=== PATIENT | male | born 1940 | race Caucasian/White ===

== ENCOUNTER 2017-02-14 07:58 | Inpatient (IN) | payer MEDICARE ==
[~2017-02-14] VITALS: Ht 177.8 cm; Wt 75.0 kg
[2017-02-14 08:48] LABS: APPEARANCE CLOUDY (CLEAR); BILIRUBIN NEGATIVE (NEGATIVE); COLOR RED (YELLOW); GLUCOSE NEGATIVE (NEGATIVE); KETONE NEGATIVE (NEGATIVE); LEUKOCYTE ESTERASE TRACE (NEGATIVE); NITRITE NEGATIVE (NEGATIVE); PROTEIN 3+ mg/dL (NEGATIVE); SPECIFIC GRAVITY 1.015 (1.005-1.020); UROBILINOGEN NORMAL (NORMAL)
[2017-02-14 08:49] LABS: BACTERIA NONE SEEN /hpf (NONE SEEN); EPITHELIAL CELLS NSEEN /hpf (0-5); RED CELLS - URINE >50 /hpf (0-5); WHITE CELLS - URINE 0-5 /hpf (0-5)
[2017-02-14 08:52] LABS: HEMOGLOBIN 14.2 g/dL (13.5-17.5); MCH 30.9 pg (26.0-34.0); MCV 93.7 fL (80.0-100.0); MEAN PLATELET VOLUME 10.8 fL (7.4-10.4); PLATELET COUNT 162 10x3/uL (130-400); RBC 4.59 10x6/uL (4.20-6.10); RDW 15.2 % (11.5-14.5); WBC 7.5 10x3/uL (4.8-10.8)
[2017-02-14 08:58] LABS: APTT 31.5 SECONDS (22.8-39.4); INR 1.09 (0.85-1.17)
[2017-02-14 09:06] LABS: ALBUMIN 3.8 g/dL (3.4-5.0); ANION GAP 10.3 mmol/L (8-16); BILIRUBIN - TOTAL 0.5 mg/dL (0.2-1.3); CALCIUM 8.7 mg/dL (8.5-10.1); CARBON DIOXIDE 28.4 mmol/L (21.0-32.0); CREATININE - SERUM 1.3 mg/dL (0.6-1.3); POTASSIUM - SERUM 3.7 mmol/L (3.5-5.1)
[2017-02-14 09:48] LABS: EOSINOPHILS 1 % (0-7); LYMPHOCYTES 27 % (15-50); MONOCYTES 15 % (2-11); NEUTROPHILS 52 % (40-80); PLATELET ESTIMATE DECREASED
--- NOTE | 2017-02-14 13:35 | NUR ---
Verbalized name and , patient admitted from ER with hematuria, mills catheter in place with bloody colored urine. Reports no pain. Call light within reach.
[2017-02-14 15:10] LABS: HEMOGLOBIN 14.2 g/dL (13.5-17.5); MCH 30.5 pg (26.0-34.0); MCV 92.3 fL (80.0-100.0); MEAN PLATELET VOLUME 11.1 fL (7.4-10.4); PLATELET COUNT 174 10x3/uL (130-400); RBC 4.66 10x6/uL (4.20-6.10); RDW 15.1 % (11.5-14.5); WBC 6.8 10x3/uL (4.8-10.8)
[2017-02-14 15:27] VITALS: Ht 177.8 cm; Wt 75.0 kg
--- NOTE | 2017-02-14 15:30 | NUR ---
Patient with bleeding around his penis, minimal urine flowing in mills catheter. cleansed up, adjusted catheter and noted some bloody urine draining into tubing and bag. Orders reviewed for continuous irrigation, discussed this and inquired of unit policy and procedure for this with nurse Og.
[2017-02-14] MEDS ORDERED: MACROBID100 MG PO (15:39)
[2017-02-14 15:43] VITALS: BP 140/82
--- NOTE | 2017-02-14 16:06 | NUR ---
Per charge nurse Lenka another nurse Julias RN will initiate and instruct this nurse on the continuous catheter irrigation.
[2017-02-14 17:12] LABS: EOSINOPHILS 3 % (0-7); LYMPHOCYTES 41 % (15-50); MONOCYTES 4 % (2-11); NEUTROPHILS 53 % (40-80); PLATELET ESTIMATE NORMAL
--- NOTE | 2017-02-14 17:30 | NUR ---
Attempts, per nurse Julisa MAYNARD to insert [address] catheter unsucessful, resistance met. Dr. Wheeler urologist contacted and he came and successfully inserted mills catheter. Continuous bladder irrigation in place.
--- NOTE | 2017-02-14 19:41 | NUR ---
PATIENT RESTING IN BED WITH NO VISIBLE SIGNS OF DISTRESS. HUNG TWO NEW BAGS OF FLUID FOR BLADDER IRRIGATION. MARILYN MEYERS EMPTIED 4000 OUT OF PATIENT'S STERN. PATIENT DENIES OTHER NEEDS AT THIS TIME. BED IN LOWEST POSITION AND CALL LIGHT WITHIN REACH. ENCOURAGED THE PATIENT TO CALL IF HE HAS NEEDS.
--- NOTE | 2017-02-14 19:50 | NUR ---
SPOKE WITH RHONDA, SUPERVISOR MOTORCYCLE REPAIR [employer]OP AND INFORMED HER THAT I NEED ADDITIONAL BAGS OF STERILE WATER FOR CONTINUOUS BLADDER IRRIGATION. I NOTIFIED RHONDA THAT I HAVE HUNG THE LAST TWO BAGS THAT WE HAVE ON THE FLOOR.
[2017-02-14 20:00] VITALS: BP 142/72
[2017-02-15] VITALS: BP 112/55
--- NOTE | 2017-02-15 01:24 | NUR ---
HUNG TWO BAGS OF FLUID FOR CONTINUOUS BLADDER IRRIGATION.
--- NOTE | 2017-02-15 02:24 | NUR ---
HUNG TWO BAGS OF FLUID FOR CONTINUOUS BLADDER IRRIGATION.
--- NOTE | 2017-02-15 03:20 | NUR ---
CALLED EMILY, FLOAT PHLEBOTOMIST ABOUT PATIENT'S CONTINUOUS BLADDER IRRIGATION. IN THE LAST HOUR ONLY 275CC HAVE DRAINED INTO THE STERN BAG. EMILY STATED THAT SHE WOULD COME UP AND LOOK AT IT.
[2017-02-15 04:00] VITALS: BP 109/64
--- NOTE | 2017-02-15 04:00 | NUR ---
EMILY, SUBSORTER FLUSHED THE PATIENT'S STERN BECAUSE IT WAS NOT DRAINING PROPERLY. SEVERAL LARGE BLOOD CLOTS WERE EXTRACTED. THE PATIENT STATED THAT HIS PAIN WAS RELIEVED WHEN THE BLOOD CLOTS WERE REMOVED.
--- NOTE | 2017-02-15 04:16 | NUR ---
HUNG TWO BAGS OF FLUID FOR CONTINUOUS BLADDER IRRIGATION.
--- NOTE | 2017-02-15 07:30 | NUR ---
PT ASSESSMENT COMPLETE AWAKE AND ALERT ORINETD X 3 LUNGS CLAER RICHARDTERALLY NOTED [address] CATH WITH CONTINUOUS IRRIGATION NOTED FOR OR TODAY WITH DR GILMA GODDARD SYRINGE USED TO REMOVE CLOT AND FREE FLOW FROM CATHETER. LARGE AMOUNTS OF BLOOD CLOTS NOTED WITH BLOODY URINE NOTED TO TUBING
[2017-02-15 08:36] VITALS: BP 111/75
--- NOTE | 2017-02-15 10:00 | NUR ---
PT URINE PINK TINGED CONTIUE CONTINUOUS IRRIGATION.
--- NOTE | 2017-02-15 10:36 | NUR ---
02/15/2017 10:41 DCP: Discharge Planning Patient Name: VERONICA ALEXANDER Admission Status: ER Accout number: [id number] Admission Date: 02-14-2017 : 1940 Admission Diagnosis: Attending: NURA Current LOS: 1 Anticipated DC Date: 02-17-2017 Planned Disposition: Home or Self Care Primary Insurance: [employer] ADV Discharge Planning Comments: CM MET WITH PATIENT WITH IN ROOM (CARLOS ALBERTO ALEXANDER) PT STATES HIS PLAN IS TO DISCHARGE HOME & HIS WILL DRIVE HIM. PT STATES THAT THERE IS 4 STAIRS WITH RAILS AND HIS HOME ENVIRONMENT IS SAFE TO RETURN HOME TO. PT IS INDEPENDENT & DENIES ANY HH NEEDS AT THIS TIME. PT WILL CONTINUE TO FOLLOW AND ASSIST NEEDED WITH DISCHARGE PLANNING/NEEDS [facility] A[facility] [phone] Car Icer: Josie Pina [id number]: Josie Pina * Is the patient Alert and Oriented? Yes 0 * How many steps to enter\exit or inside your home? 4 0 * PCP YARIEL 0 * [facility] * Preadmission Environment Home with Family 0 * ADLs Independent 0 * Equipment None 0 * List name and contact numbers for known caregivers / representatives who currently or will assist patient after discharge: CARLOS ALBERTO ALEXANDER() [phone] 0 * Community resources currently utilized None 0 * Additional services required to return to the preadmission environment? Yes 0 * Can the patient safely return to the preadmission environment? Yes 0 * Has this patient been hospitalized within the prior 30 days at any hospital? No 0
--- NOTE | 2017-02-15 11:30 | NUR ---
PATIENT IS ALERT AND ORIENTED X'S 4. SITTING IN RECLINER. BED IN LOWEST POSITION, CALL LIGHT IN REACH. BED RIALS UP X'S 2. PATIENT DENIES NEEDS.
[2017-02-15 12:17] VITALS: BP 137/71
[2017-02-15 16:44] VITALS: BP 145/85
--- NOTE | 2017-02-15 16:46 | NUR ---
RETURNED VIA BED FROM RECOVERY ROOM AWAKE AND ALERT FAMILY AT SIDE. NO STERN NOTED REMOVED IN OR PER DR DILLARD. CALL LIGHT IN REACH
--- NOTE | 2017-02-15 17:28 | NUR ---
CM NOTE: PT WITH DISCHARGE ORDER TO GO HOME. PT WILL BE DISCHARGED WITH HIS TO DRIVE HOME. DENIES AND CM NEEDS OR HH NEEDS . NAN HERNANDEZ RN
[2017-02-15] MEDS ORDERED: PROSCAR5 MG PO (18:05)
--- NOTE | 2017-02-15 18:08 | NUR ---
PT UP ATTEMPTING TO VOID POST OR AND CATH REMOVAL. DISCHARGE ORDERS ARE IN AND DISCHARGE IS PENDING POST VOID.
--- NOTE | 2017-02-15 18:10 | NUR ---
PT VOIDED 75 ML LIGHT PINK TINGED URINE.
--- NOTE | 2017-02-15 19:49 | NUR ---
PT DISCHARGED PER ORDER DISCHARGE INSTRUCTIONS GIVEN EXPRESSED UNDERSTANDING. PIV DISCONTINUNED. LEFT VIA WHEELCHAIR TO PRIVATE VEHICLE
--- NOTE | 2017-02-16 09:29 | OP ---
PATIENT NAME: VERONICA ALEXANDER MEDICAL RECORD: [id number] :40 LOCATION:[id number] ADMISSION DATE:02/14/17 SURGEON: GABINO DILLARD MD DATE OF OPERATION: 02/15/2017 SURGEON: Gabino Dillard MD. ANESTHESIA: General anesthesia by Dr. Edmondson. PREOPERATIVE DIAGNOSES: Gross hematuria, possible bladder tumor. FINDINGS: A very enlarged prostate with prominent prosthetic urethral veins, which are bleeding. Heavily trabeculated bladder with diverticula. No bladder tumors seen. PROCEDURES: Cystoscopy, bladder clot evacuation. SPECIMENS: None. ESTIMATED BLOOD LOSS: None. COMPLICATIONS: None. CLINICAL HISTORY: The patient is a 77-year-old male with a longstanding history of difficulty voiding. He came to the Emergency Room with gross hematuria. Continuous bladder irrigation was started and he had a CAT scan. The CAT scan showed normal kidneys. No hydronephrosis, no masses. There was a very enlarged prostate noted. He also had some masses in the posterior wall of the bladder, which may have been a blood clot. However, we do need to perform cystoscopy to verify the source of the bleeding. He says that he had gross hematuria in the past and he was cystoscoped by another urologist and the urologist told him that it was the urethral veins from his enlarged prostate that was bleeding. He was given Ancef 1 gram IV cork insulation installer to the OR. DESCRIPTION OF PROCEDURE: The patient was given induction of general anesthesia. We took his Emery catheter out that he had on the floor. He was put in the dorsal lithotomy position and prepped and draped. We then used a 21-Swedish cystoscope. Going into the urethra, there is no urethral stricture. He does have quite tight phimosis however. Going into the prostatic urethra, the prostatic urethra was quite enlarged and obstructive and there are quite prominent veins on the urethral mucosa, which are bleeding. We went into the bladder. There were some clots in the bladder. These were irrigated out using an Reid evacuator. Going back in with a 70-degree lens, the bladder is heavily trabeculated, but no bladder tumors were seen. The prostate does project into the bladder lumen quite significantly, so it was very difficult to see the bladder neck area. At this point, because the patient has somewhat discomfort with the Emery catheter, I drained his bladder and took the scope out. His Emery catheter will not be reinserted. If he is able to void without difficulty, we will send him home with a prescription for finasteride. I will see him in followup next week to see how he is voiding. I did send urine for culture, but I do not see any culture results yet. He may need a suprapubic prostatectomy at some point in the future. TRANSINT:[id number] Voice Confirmation ID: [id number] DOCUMENT ID: [id number] OPERATIVE REPORT [id number] VERONICA ALEXANDER, GABINO Douglas MD at 0929 CC: [id number] DICTATION DATE: 02/15/17 1538 CO OP: 02/16/17 0038 DIS IN 02/15/17 [facility] [address] [place] [address]
== END 2017-02-15 19:50 | disposition home or self-care (01) | DRG 730 ==
LOC: D.ER 07:58 → D.MS 12:07
PROVIDERS: Family Medicine; ADMIT Urology
PROC: 3E1K88Z Irrigation of Genitourinary Tract using Irrigating Substance, Via Natural or Artificial Opening Endoscopic (ICD-10-PCS; 2017-02-14)
PROC: 0T9B70Z Drainage of Bladder with Drainage Device, Via Natural or Artificial Opening (ICD-10-PCS; 2017-02-14)
PROC: 0TCB8ZZ Extirpation of Matter from Bladder, Via Natural or Artificial Opening Endoscopic (ICD-10-PCS; principal; 2017-02-15 12:15)
DX: N42.1 Congestion and hemorrhage of prostate (principal); R42 Dizziness and giddiness; H91.90 Unspecified hearing loss, unspecified ear; N32.89 Other specified disorders of bladder; F17.200 Nicotine dependence, unspecified, uncomplicated

== ENCOUNTER 2017-03-15 00:49 | Emergency (ER) | payer MEDICARE ==
[2017-02-14 15:27] VITALS: BMI 23.7
[~2017-03-15 00:49] MED LIST: MACROBID100 MG PO; PROSCAR5 MG PO
== END 2017-03-15 01:52 | disposition home or self-care (01) ==
LOC: D.ER 00:49
DX: N13.9 Obstructive and reflux uropathy, unspecified (principal)

== ENCOUNTER 2017-04-07 00:17 | Emergency (ER) | payer MEDICARE ==
[2017-02-14 15:27] VITALS: BMI 23.7
[2017-04-07 00:58] LABS: APPEARANCE HAZY (CLEAR); BACTERIA FEW /hpf (NONE SEEN); BILIRUBIN NEGATIVE (NEGATIVE); COLOR YELLOW (YELLOW); EPITHELIAL CELLS NSEEN /hpf (0-5); GLUCOSE NEGATIVE (NEGATIVE); KETONE NEGATIVE (NEGATIVE); LEUKOCYTE ESTERASE 2+ (NEGATIVE); NITRITE POSITIVE (NEGATIVE); PROTEIN TRACE mg/dL (NEGATIVE); RED CELLS - URINE 0-5 /hpf (0-5); UROBILINOGEN NORMAL (NORMAL)
== END 2017-04-07 01:34 | disposition home or self-care (01) ==
LOC: D.ER 00:17
PROVIDERS: Family Medicine
DX: N39.0 Urinary tract infection, site not specified (principal); N40.0 Benign prostatic hyperplasia without lower urinary tract symptoms

== ENCOUNTER 2017-05-04 16:35 | Emergency (ER) | payer MEDICARE ==
[2017-02-14 15:27] VITALS: BMI 23.7
[2017-05-04 19:16] LABS: APPEARANCE CLOUDY (CLEAR); BILIRUBIN NEGATIVE (NEGATIVE); COLOR YELLOW (YELLOW); GLUCOSE NEGATIVE (NEGATIVE); KETONE NEGATIVE (NEGATIVE); LEUKOCYTE ESTERASE 1+ (NEGATIVE); NITRITE POSITIVE (NEGATIVE); PROTEIN NEGATIVE (NEGATIVE); SPECIFIC GRAVITY 1.015 (1.005-1.020); UROBILINOGEN NORMAL (NORMAL)
[2017-05-04 19:17] LABS: WHITE CELLS - URINE 25-50 /hpf (0-5)
[2017-05-04 19:18] LABS: BACTERIA MODERATE /hpf (NONE SEEN); RED CELLS - URINE 0-5 /hpf (0-5)
== END 2017-05-04 19:10 | disposition home or self-care (01) ==
LOC: D.ER 16:35
PROVIDERS: Family Medicine
DX: R33.9 Retention of urine, unspecified (principal); N40.0 Benign prostatic hyperplasia without lower urinary tract symptoms

== ENCOUNTER 2017-06-22 08:00 | Outpatient (CLI) | payer MEDICARE ==
[2017-06-21 10:32] LABS: HEMATOCRIT 45.5 % (42.0-54.0); HEMOGLOBIN 15.1 g/dL (13.5-17.5); MCH 30.6 pg (26.0-34.0); MCHC 33.2 g/dL (31.0-37.0); MCV 92.1 fL (80.0-100.0); MEAN PLATELET VOLUME 11.3 fL (7.4-10.4); RBC 4.94 10x6/uL (4.20-6.10); RDW 14.7 % (11.5-14.5); WBC 7.4 10x3/uL (4.8-10.8)
[~2017-06-22] VITALS: Ht 177.8 cm; Wt 70.3 kg
[2017-06-22 12:36] VITALS: BP 147/83; Ht 177.8 cm; Wt 70.3 kg
--- NOTE | 2017-06-22 13:00 | NUR ---
CALLED LAB TO DRAW FOR 2 UNITS T AND MATCH TALKED WITH ARNULFO. ALSO CVALLED GUDELIA MAE TO DO.
--- NOTE | 2017-06-22 16:11 | NUR ---
1420-DR DILLARD HERE AND SPEAKS WITH PATIENT AND FAMILY. 1430-IV D/C AND LUNCH TRAY SERVED 1440-D/C HOME WITH FAMILY
== END 2017-06-22 16:15 | disposition home or self-care (01) ==
LOC: D.OPS 08:00 → D.SDCHOLD 11:00 → EDSTATUS 11:00 → D.OPS 16:15
PROVIDERS: Anesthesiology
DX: N40.1 Benign prostatic hyperplasia with lower urinary tract symptoms (principal); R33.8 Other retention of urine; Z01.810 Encounter for preprocedural cardiovascular examination; Z01.811 Encounter for preprocedural respiratory examination; Z01.812 Encounter for preprocedural laboratory examination; Z53.9 Procedure and treatment not carried out, unspecified reason

== ENCOUNTER → 2017-06-25 18:27 | Outpatient (CLI) | payer MEDICARE | END | disposition home or self-care (01) | LOC: D.LABREF 18:27 | DX: N39.0 Urinary tract infection, site not specified (principal) ==

== ENCOUNTER 2018-09-10 11:11 | Emergency (ER) | payer OTHER ==
[~2018-09-10] VITALS: Ht 177.8 cm; Wt 68.2 kg
[2018-09-10 11:15] VITALS: Ht 177.8 cm; Wt 68.2 kg
[2018-09-10 11:41] LABS: COLOR RED (YELLOW)
[2018-09-10 11:42] LABS: APPEARANCE CLOUDY (CLEAR); BILIRUBIN NEGATIVE (NEGATIVE); GLUCOSE NEGATIVE (NEGATIVE); KETONE NEGATIVE (NEGATIVE); NITRITE NEGATIVE (NEGATIVE); PROTEIN 1+ mg/dL (NEGATIVE); SPECIFIC GRAVITY 1.015 (1.005-1.020); UROBILINOGEN NORMAL (NORMAL)
[2018-09-10 11:44] LABS: BACTERIA FEW /hpf (NONE SEEN); EPITHELIAL CELLS RARE /hpf (0-5); MUCUS <1+ /lpf (NONE SEEN); RED CELLS - URINE >50 /hpf (0-5); WHITE CELLS - URINE OCC /hpf (0-5)
[2018-09-10 11:51] LABS: BASOPHILS 0.3 % (0-2); EOSINOPHILS 0.5 % (0-7); HEMATOCRIT 47.3 % (42.0-54.0); IMMATURE GRANULOCYTES 0.9 % (0-5); LYMPHOCYTES 32.1 % (15-50); MCH 30.8 pg (26.0-34.0); MCHC 33.8 g/dL (31.0-37.0); MCV 91.1 fL (80.0-100.0); MEAN PLATELET VOLUME 11.9 fL (7.4-10.4); MONOCYTES 27.9 % (2-11); NEUTROPHILS 38.3 % (40-80); PLATELET COUNT 197 10x3/uL (130-400); RBC 5.19 10x6/uL (4.20-6.10); WBC 7.9 10x3/uL (4.8-10.8)
[2018-09-10 12:08] LABS: ALBUMIN 3.9 g/dL (3.4-5.0); ANION GAP 15.6 mmol/L (8-16); BILIRUBIN - TOTAL 0.44 mg/dL (0.2-1.3); CALCIUM 9.1 mg/dL (8.5-10.1); CARBON DIOXIDE 23.4 mmol/L (21.0-32.0); CREATININE - SERUM 1.3 mg/dL (0.6-1.3); PROTEIN - SERUM 7.8 g/dL (6.4-8.2)
[2018-09-10 15:25] VITALS: BP 158/88
== END 2018-09-10 15:26 | disposition home or self-care (01) ==
LOC: D.ER 11:11
PROVIDERS: Family Medicine
DX: N40.0 Benign prostatic hyperplasia without lower urinary tract symptoms (principal); R31.0 Gross hematuria; F17.200 Nicotine dependence, unspecified, uncomplicated

== ENCOUNTER → 2019-06-27 09:58 | Outpatient (CLI) | payer OTHER ==
[2018-09-10 11:15] VITALS: BMI 21.5
== END | disposition home or self-care (01) ==
LOC: D.LAB 09:58
PROVIDERS: ATTEND Urology
DX: N40.0 Benign prostatic hyperplasia without lower urinary tract symptoms (principal)

== ENCOUNTER 2019-07-08 05:10 | Day surgery (SDC) | payer OTHER ==
[2019-07-07 08:24] LABS: HEMATOCRIT 48.8 % (42.0-54.0); HEMOGLOBIN 16.1 g/dL (13.5-17.5); MCH 30.4 pg (26.0-34.0); MCV 92.1 fL (80.0-100.0); MEAN PLATELET VOLUME 11.1 fL (7.4-10.4); RBC 5.3 10x6/uL (4.20-6.10); RDW 14.8 % (11.5-14.5); WBC 6.7 10x3/uL (4.8-10.8)
[~2019-07-08] VITALS: Ht 177.8 cm; Wt 72.6 kg
[2019-07-08 06:23] VITALS: BP 139/69; Ht 177.8 cm; Wt 72.6 kg
--- NOTE | 2019-07-08 08:46 | NUR ---
0888 DR. GILMA DAVIS
--- NOTE | 2019-07-08 12:03 | OP ---
PATIENT NAME: VERONICA ALEXANDER MEDICAL RECORD: [id number] :40 LOCATION:[facility] ADMISSION DATE: SURGEON: RAEANN DILLARD MD DATE OF OPERATION: 07/08/2019 SURGEON: Raeann Dillard MD ANESTHESIA: TIVA by Yary Armendariz CRNA. DIAGNOSES: Elevated PSA of 4.0, history of urinary retention, bladder outlet obstruction. PROCEDURES: Cystoscopy, transrectal ultrasound and prostate biopsy. FINDINGS: On cystoscopy, very long prostatic urethra with bilateral lateral lobe obstruction. The right lateral lobe was larger in size than the left. There is a large median lobe, which protrudes into the bladder. There are no bladder tumors. He has single ureteral orifices bilaterally. On transrectal ultrasound, the prostate is extremely large at 118 grams size. There is a large hypoechoic area at the left base. BLOOD LOSS: Minimal. CLINICAL HISTORY: This is a 79-year-old male, whom I saw in 2017 for gross hematuria as well as urinary retention. He has been on finasteride and tamsulosin since 03/16/2017. He was eventually able to void on his own. Cystoscopy showed a very large prostate with invasion into the bladder neck region. The bladder is heavily trabeculated with cellules and diverticula. On NEHEMIAH, the prostate size was estimated at 100 grams in 2017. He continues to have obstructive voiding symptoms including nocturia with daytime urinary frequency, hesitancy, and a very slow flow. His IPPS score is 23 and his quality of life score is 4 on finasteride. He was interested in having the UroLift procedure. The UroLift does have a FDA size limit of 80 grams, but I was hoping that with reduction in size with finasteride that his prostate would be amenable to the UroLift. We obtained a serum PSA and it was elevated at 4.0. He comes today to have a prostate biopsy. HE IS ALLERGIC TO ACETAMINOPHEN. He was given Ancef tax services professional to the OR. DESCRIPTION OF PROCEDURE: The patient was given IV sedation. He was then placed into lithotomy position and prepped and draped. A 17-Frisian cystoscope with 30-degree lens was used for visualization. Findings are as outlined above. The bladder was then emptied through the cystoscope sheath and the scope was removed. The transrectal ultrasound probe was then placed into the rectum. Prostate size measurements were obtained. Sextant biopsies were obtained with at least 3 cores from each sextant. In the left base where there was a large hypoechoic area, I tried to make sure that the needle went into the hypoechoic area. Once all the specimens were obtained, the procedure was terminated. The patient was brought back to the preoperative holding area. I will see him next week to review his pathology results with him. TRANSINT:[id number] Voice Confirmation ID: [id number] DOCUMENT ID: [id number] OPERATIVE REPORT [id number] VERONICA ALEXANDER, RAEANN Douglas MD at 1203 CC: [id number] DICTATION DATE: 07/08/19830 RETRIMMER: 07/08/19 1139 [facility] 07/08/19 [address] [place] [address]
== END 2019-07-08 09:06 | disposition home or self-care (01) ==
LOC: D.OPS 05:10 → D.PAN 08:00 → D.OPS 09:06 → D.PAN 10:15
PROVIDERS: Anesthesiology; ATTEND Urology
DX: N32.0 Bladder-neck obstruction (principal); R97.20 Elevated prostate specific antigen [PSA]

== ENCOUNTER → 2019-08-01 08:13 | Outpatient (CLI) | payer OTHER ==
[2019-07-08 06:23] VITALS: BMI 23.0
[~2019-08-01 08:13] MED LIST changes: +CIPRO500 MG PO
== END | disposition home or self-care (01) ==
LOC: D.CT 08:13
PROVIDERS: ATTEND Urology
DX: C61 Malignant neoplasm of prostate (principal)

== ENCOUNTER 2019-08-03 01:06 | Emergency (ER) | payer OTHER ==
[~2019-08-03] VITALS: Ht 177.8 cm; Wt 72.7 kg
[~2019-08-03 01:06] MED LIST changes: -CIPRO500 MG PO
[2019-08-03 01:12] VITALS: Ht 177.8 cm; Wt 72.7 kg
[2019-08-03 01:55] VITALS: BP 135/78
== END 2019-08-03 01:56 | disposition home or self-care (01) ==
LOC: D.ER 01:06
DX: R33.9 Retention of urine, unspecified (principal); C61 Malignant neoplasm of prostate; F17.200 Nicotine dependence, unspecified, uncomplicated

== ENCOUNTER 2019-08-09 18:31 | Emergency (ER) | payer OTHER ==
[~2019-08-09] VITALS: Ht 177.8 cm; Wt 72.7 kg
[2019-08-09 18:49] VITALS: Ht 177.8 cm; Wt 72.7 kg
[2019-08-09 19:54] LABS: APPEARANCE TURBID (CLEAR); COLOR RED (YELLOW)
[2019-08-09 19:55] LABS: BILIRUBIN NEGATIVE (NEGATIVE); GLUCOSE NEGATIVE (NEGATIVE); KETONE NEGATIVE (NEGATIVE); NITRITE POSITIVE (NEGATIVE); PROTEIN 3+ mg/dL (NEGATIVE); UROBILINOGEN NORMAL (NORMAL)
[2019-08-09 20:01] LABS: BACTERIA MODERATE /hpf (NEGATIVE); EPITHELIAL CELLS NSEEN /hpf (0-5); RED CELLS - URINE >50 /hpf (0-5)
[2019-08-09] MEDS ORDERED: CIPRO500 MG PO (20:26)
[2019-08-09 22:20] VITALS: BP 169/86
== END 2019-08-09 22:20 | disposition home or self-care (01) ==
LOC: D.ER 18:31
PROVIDERS: Family Medicine
DX: N39.0 Urinary tract infection, site not specified (principal); Z46.6 Encounter for fitting and adjustment of urinary device; M19.90 Unspecified osteoarthritis, unspecified site; F17.210 Nicotine dependence, cigarettes, uncomplicated

== ENCOUNTER → 2019-08-13 08:23 | Outpatient (CLI) | payer OTHER ==
[2019-08-09 18:49] VITALS: BMI 23.0
[~2019-08-13 08:23] MED LIST changes: +CIPRO500 MG PO
== END | disposition home or self-care (01) ==
LOC: D.NM 08:23
PROVIDERS: ATTEND Urology
DX: C61 Malignant neoplasm of prostate (principal)

== ENCOUNTER → 2019-09-17 17:57 | Outpatient (CLI) | payer OTHER ==
[2019-08-09 18:49] VITALS: BMI 23.0
== END | disposition home or self-care (01) ==
LOC: D.LABREF 17:57
PROVIDERS: ATTEND Urology
DX: N39.0 Urinary tract infection, site not specified (principal)

== ENCOUNTER → 2019-10-13 23:42 | Outpatient (CLI) | payer OTHER ==
[2019-08-09 18:49] VITALS: BMI 23.0
== END | disposition home or self-care (01) ==
LOC: D.LABREF 23:42
PROVIDERS: ATTEND Urology
DX: N39.0 Urinary tract infection, site not specified (principal)

== ENCOUNTER 2019-11-24 05:16 | Emergency (ER) | payer OTHER ==
[~2019-11-24] VITALS: Ht 177.8 cm; Wt 72.6 kg
[2019-11-24 05:22] VITALS: Ht 177.8 cm; Wt 72.6 kg
[2019-11-24 07:03] LABS: BACTERIA FEW /hpf (NEGATIVE); EPITHELIAL CELLS NSEEN /hpf (0-5); RED CELLS - URINE >50 /hpf (0-5); WHITE CELLS - URINE 0-5 /hpf (NEGATIVE)
[2019-11-24 07:26] VITALS: BP 158/88
== END 2019-11-24 07:27 | disposition home or self-care (01) ==
LOC: D.ER 05:16
PROVIDERS: Family Medicine
DX: C61 Malignant neoplasm of prostate (principal); R33.8 Other retention of urine